=== PATIENT | female | born 1940 | race Hispanic/Latino ===

== ENCOUNTER → 2019-05-05 | Outpatient (CLI) | payer MEDICARE ==
[~2019-05-05] MED LIST: ACET1TAB25 PO; AMIO200T5 PO; ASPI-1197 PO; ATOR40TA71 PO; HYDR12.530 PO; LISI40TA4 PO
== END | disposition home or self-care (01) ==
LOC: SHCH 15:44
PROVIDERS: ATTEND Internal Medicine Cardiovascular Disease
DX: I47.2 Ventricular tachycardia (principal)
CPT/HCPCS: 93306

== ENCOUNTER → 2021-09-27 | Outpatient (CLI) | payer MEDICARE ==
[~2021-09-27] MED LIST changes: +ACET-2079 PO; -ACET1TAB25 PO; -AMIO200T5 PO; +AMIO200T68 PO; -LISI40TA4 PO; +LISI40TA9 PO
== END | disposition home or self-care (01) ==
LOC: SHCH 11:00
PROVIDERS: ATTEND Internal Medicine Cardiovascular Disease
DX: I07.1 Rheumatic tricuspid insufficiency (principal); I47.2 Ventricular tachycardia
CPT/HCPCS: 93306

== ENCOUNTER → 2022-08-03 | Outpatient (CLI) | payer MEDICARE | END | disposition home or self-care (01) | LOC: SHCH 08:51 | PROVIDERS: ATTEND Internal Medicine Cardiovascular Disease | DX: I87.2 Venous insufficiency (chronic) (peripheral) (principal); I73.9 Peripheral vascular disease, unspecified | CPT/HCPCS: 93925; 93970 ==

== ENCOUNTER → 2024-08-05 | Outpatient (CLI) | payer MEDICARE ==
--- NOTE | 2024-08-08 08:17 | HMCSR ---
APPROVED REPORT Laterality: Bilateral Indications I73.9 VELOCITY AND DOPPLER WAVEFORM ANALYSIS AMPOULE SEALER (R) 149.9cm/sec, Biphasic, AMPOULE SEALER (L) 161.5cm/sec, Biphasic, Prof Fem Art. (R) 87.0cm/sec, Biphasic, Prof Fem Art. (L) 77.2cm/sec, Biphasic, Fem Art Prox. (R) 102.1cm/sec, Biphasic, Fem Art Prox. (L) 80.8cm/sec, Biphasic, Fem Art Mid. (R) 94.2cm/sec, Biphasic, Fem Art Mid. (L) 69.1cm/sec, Biphasic, Fem Art Dist (R) 63.6cm/sec, Biphasic, Fem Art Dist. (L) 60.1cm/sec, Biphasic, Pop Art(AK) (R) 75.0cm/sec, Biphasic, Pop Art (AK) (L) 91.5cm/sec, Biphasic, Pop Art (Fossa)(R) 63.6cm/sec, Biphasic, Pop Art (Fossa) (L) 72.9cm/sec, Biphasic, Pop Art(BK) (R) 75.9cm/sec, Biphasic, Pop Art (BK) (L) 79.9cm/sec, Biphasic, RAIL CAR PAINTER/SANDBLASTER Prox. (R) 105.4cm/sec, Biphasic, RAIL CAR PAINTER/SANDBLASTER Prox. (L) 66.0cm/sec, Biphasic, RAIL CAR PAINTER/SANDBLASTER Mid. (R) 79.9cm/sec, Biphasic, RAIL CAR PAINTER/SANDBLASTER Mid. (L) 82.2cm/sec, Biphasic, RAIL CAR PAINTER/SANDBLASTER Dist. (R) 69.3cm/sec, Biphasic, RAIL CAR PAINTER/SANDBLASTER Dist. (L) 66.0cm/sec, Biphasic, Per Art Prox. (R) 52.1cm/sec, Monophasic, Per Art Prox. (L) 52.1cm/sec, Monophasic, Per Art Mid. (R) 46.3cm/sec, Monophasic, Per Art Mid. (L) 54.4cm/sec, Monophasic, Per Art Dist. (R) 42.8cm/sec, Monophasic, Per Art Dist. (L) 52.1cm/sec, Monophasic, SUPRIYA Prox. (R) 93.8cm/sec, Biphasic, SUPRIYA Prox. (L) 104.2cm/sec, Biphasic, SUPRIYA Mid. (R) 49.8cm/sec, Biphasic SUPRIYA Mid. (L) 67.1cm/sec, Biphasic, SUPRIYA Dist. (R) 67.1cm/sec, Biphasic, SUPRIYA Dist. (L) 96.1cm/sec, Biphasic, Technologist Impression Monophsaic waveforms in the right and left Peroneal arteries. Significant calcification noted infra- popliteal in the bilateral lower extremiteis. 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
--- NOTE | 2024-08-08 08:17 | HMCSR ---
APPROVED REPORT Bilateral Lower Extremity Venous Study for DVT., Venous Competence. Indications i87.1,i87.2 Vein Imaging CFV (R): Normal flow, augmentation and compression. No evidence of DVT. 8.0mm 1833ms of reflux. SFJ (R): Normal flow, augmentation and compression. No evidence of DVT. FEM (R): Normal flow, augmentation and compression. No evidence of DVT. Distal 1278ms of reflux. POP (R): Normal flow, augmentation and compression. No evidence of DVT. 872ms of reflux. DFV (R): Normal flow, augmentation and compression. No evidence of DVT. PTV (R): Normal flow, augmentation and compression. No evidence of DVT. Peroneals (R): Normal flow, augmentation and compression. No evidence of DVT.CFV (L): Normal flow, a ugmentation and compression. No evidence of DVT. 9.0mm 1056ms of reflux. SFJ (L): Normal flow, augmentation and compression. No evidence of DVT. FEM (L): Normal flow, augmentation and compression. No evidence of DVT. POP (L): Normal flow, augmentation and compression. No evidence of DVT. DFV (L): Normal flow, augmentation and compression. No evidence of DVT. PTV (L): Normal flow, augmentation and compression. No evidence of DVT. Peroneals (L): Normal flow, augmentation and compression. No evidence of DVT. Technologist Impression Deep veins of the bilateral lower extremities appear patent and compressible without thrombus. Deep venous reflux noted in the RCFV, RSFV and LCFV. Superficial venous insufficiency noted in the RGSV RGSV junction 5.7mm 3139ms thigh 3.4mm 2683ms knee 3.3mm 2706ms calf 2.8mm 3717ms RSSV prox 1.0mm 0.0ms mid 1.4mm 0.0ms LGSV junction 6.5mm 0.0ms thigh 2.3mm 0.0ms knee 1.8mm 0.0ms calf 0.9mm 0.0ms LSSV prox 1.2mm 0.0ms mid 0.4mm 0.0ms Fluid noted behind the right and left knees. Conclusion Severe l deep venous reflux noted to bilateral common femoral veins severe superficial venous reflux of right greater saphenous vein Conclusion Severe l deep venous reflux noted to bilateral common femoral veins severe superficial venous reflux of right greater saphenous vein
== END | disposition home or self-care (01) ==
LOC: SHCH 13:52
PROVIDERS: ATTEND Internal Medicine Cardiovascular Disease
DX: I87.1 Compression of vein (principal); I87.2 Venous insufficiency (chronic) (peripheral); I73.9 Peripheral vascular disease, unspecified
CPT/HCPCS: 93925; 93970